=== PATIENT | male | born 1935 | race Caucasian/White ===

== ENCOUNTER 2019-11-01 12:27 | Outpatient (REF) | payer MEDICARE, OTHER, SELFPAY ==
[2019-11-01 21:44] LABS: Absolute Basophil Count 0.02 k/cumm (0.0-0.2); Absolute Eosinophil Count 0.16 k/cumm (0.0-0.7); Absolute Lymphocyte Count 1.24 k/cumm (1.2-3.4); Absolute Monocyte Count 0.49 k/cumm (0.11-0.7); Absolute Neutrophil Count 3.43 k/cumm (1.2-6.7); Basophils % 0.4; HCT 45.4 % (40.0-50.0); Lymphocytes % 23.2; Mean Corpuscular Hemoglobin 29.4 pg (27.0-33.0); Mean Platelet Volume 10.5 fL (8.0-11.0); Monocytes % 9.2; Neutrophils % 64.2; Platelet Count 319 x1000/uL (130-400); RBC Distribution Width 13.3 % (11.8-14.1); White Blood Cell Count 5.34 k/cumm (4.4-10.8)
[2019-11-01 22:20] LABS: Anion Gap 9.7 mmol/L (3-11); BUN 17 mg/dL (7-18); CO2 29.3 mmol/L (21.0-32.0); CREATININE 0.97 mg/dL (0.70-1.30); Calcium 9.2 mg/dL (8.5-10.1); Calculated LDL 124 mg/dL (<100); Chloride 104 mmol/L (98-107); Cholesterol 191 mg/dL (<200); Glucose 111 mg/dL (74-106); HDL Cholesterol 49 mg/dL (40-60); Potassium 4.6 mmol/L (3.5-5.1); Sodium 143 mmol/L (136-145); TSH 2.26 uIU/mL (0.36-3.74); Triglyceride 94 mg/dL (<150); Vitamin B12 372 pg/mL (193-986)
== END 2019-11-01 12:47 ==
LOC: NCHCN 12:27
PROVIDERS: PCP Family Medicine; Visit Provider Internal Medicine
DX: E78.5 Hyperlipidemia, unspecified (principal)
CPT/HCPCS: 80048; 80061; 82607; 84443; 85025

== ENCOUNTER 2021-01-01 13:10 | Outpatient (REF) | payer MEDICARE, OTHER, SELFPAY ==
[2021-01-01 21:13] LABS: Anion Gap 5.2 mmol/L (3-11); BUN 26 mg/dL (7-18); CO2 30.8 mmol/L (21.0-32.0); CREATININE 1.1 mg/dL (0.70-1.30); Calcium 8.9 mg/dL (8.5-10.1); Calculated LDL 94 mg/dL (<100); Chloride 105 mmol/L (98-107); Cholesterol 160 mg/dL (<200); Glucose 107 mg/dL (74-106); HDL Cholesterol 42 mg/dL (40-60); Potassium 4.3 mmol/L (3.5-5.1); Sodium 141 mmol/L (136-145); Triglyceride 122 mg/dL (<150)
== END 2021-01-01 13:11 | disposition home or self-care (01) ==
LOC: NCHCN 13:10
PROVIDERS: PCP Family Medicine; Visit Provider Internal Medicine
DX: E78.5 Hyperlipidemia, unspecified (principal); N20.0 Calculus of kidney
CPT/HCPCS: 80048; 80061

== ENCOUNTER 2022-07-04 17:09 | Outpatient (REF) | payer MEDICARE, SELFPAY ==
[2022-07-04 21:17] LABS: Hemoglobin A1C 6.5 % (<5.7)
[2022-07-04 21:38] LABS: ALT 21 U/L (16-63); AST 18 U/L (15-37); Albumin 3.7 g/dL (3.4-5.0); Alkaline Phosphatase 84 U/L (46-116); Anion Gap 7.4 mmol/L (3-11); BUN 26 mg/dL (7-18); Bilirubin, Total 0.2 mg/dL (0.2-1.0); CO2 27.6 mmol/L (21.0-32.0); Calcium 9.1 mg/dL (8.5-10.1); Chloride 106 mmol/L (98-107); Estimated GFR 73.76 (mL/min/1.73m2); Glucose 109 mg/dL (74-106); Potassium 3.9 mmol/L (3.5-5.1); Sodium 141 mmol/L (136-145); Total Protein 7.2 g/dL (6.4-8.2); Vitamin B12 295 pg/mL (193-986)
== END 2022-07-04 17:10 | disposition home or self-care (01) ==
LOC: NCHCN 17:09
PROVIDERS: PCP Family Medicine; Visit Provider Internal Medicine
DX: R73.9 Hyperglycemia, unspecified (principal); I10 Essential (primary) hypertension; R41.3 Other amnesia
CPT/HCPCS: 80053; 82607; 83036; 84443

== ENCOUNTER 2022-10-09 12:11 | Outpatient (REF) | payer MEDICARE, SELFPAY ==
[2022-10-09 22:23] LABS: COMMENT (LAB VIEW ONLY) 132.68 mg/dL
[2022-10-09 22:41] LABS: Microalb ug/mg Crea 152.1 ug/mg Cr
== END 2022-10-09 12:12 | disposition home or self-care (01) ==
LOC: NCHCN 12:11
PROVIDERS: PCP Family Medicine; Visit Provider Internal Medicine
DX: E11.9 Type 2 diabetes mellitus without complications (principal)
CPT/HCPCS: 82043; 82570

== ENCOUNTER 2023-08-08 18:11 | Outpatient (REF) | payer MEDICARE, SELFPAY ==
[2023-08-08 14:38] LABS: HCT 37.6 % (40.0-50.0); HGB 12.4 g/dL (13.5-17.5); MCV 91 fL (80-95); MPV 9.9 fL (8.0-11.0); Platelet Count 236 10^3/uL (130-400); RBC 4.14 10^6/uL (4.36-5.78); RDW 12.2 % (11.8-14.1); RDW-SD 40.8 fL; WBC 6.01 10^3/uL (4.4-10.8)
[2023-08-08 15:57] LABS: ALT 33 U/L (16-63); AST 22 U/L (15-37); Albumin 3.8 g/dL (3.4-5.0); Alkaline Phosphatase 80 U/L (46-116); Anion Gap 5.8 mmol/L (3-11); BUN 41 mg/dL (7-18); Bilirubin, Total 0.3 mg/dL (0.2-1.0); CO2 28.2 mmol/L (21.0-32.0); CREATININE 1.4 mg/dL (0.70-1.30); Calcium 9.3 mg/dL (8.5-10.1); Chloride 107 mmol/L (98-107); Estimated GFR 48.95 (mL/min/1.73m2); Glucose 125 mg/dL (74-106); Potassium 4.8 mmol/L (3.5-5.1); Sodium 141 mmol/L (136-145); Total Protein 7.3 g/dL (6.4-8.2)
== END 2023-08-08 18:12 | disposition home or self-care (01) ==
LOC: NCHCN 18:11
PROVIDERS: PCP Family Medicine; Visit Provider Internal Medicine
DX: I10 Essential (primary) hypertension (principal); E11.9 Type 2 diabetes mellitus without complications
CPT/HCPCS: 80053; 85027

== ENCOUNTER 2023-08-15 22:26 | Outpatient (REF) | payer MEDICARE, SELFPAY ==
[2023-08-15 21:35] LABS: COMMENT (LAB VIEW ONLY) 157.45 mg/dL
[2023-08-15 21:37] LABS: Microalb ug/mg Crea 97.6 ug/mg Cr
== END 2023-08-15 22:27 | disposition home or self-care (01) ==
LOC: NCHCN 22:26
PROVIDERS: PCP Family Medicine; Visit Provider Internal Medicine
DX: E11.9 Type 2 diabetes mellitus without complications (principal)
CPT/HCPCS: 82043; 82570

== ENCOUNTER 2023-11-12 14:12 | Outpatient (REF) | payer MEDICARE, SELFPAY ==
[2023-11-12 16:03] LABS: HCT 36.8 % (40.0-50.0); MCH 29.9 pg (27.0-33.0); MCHC 32.6 % (32.0-36.0); MCV 92 fL (80-95); Platelet Count 322 10^3/uL (130-400); RBC 4.01 10^6/uL (4.36-5.78); RDW 13.1 % (11.8-14.1); RDW-SD 43.3 fL; WBC 6.41 10^3/uL (4.4-10.8)
[2023-11-12 16:18] LABS: Anion Gap 7.9 mmol/L (3-11); BUN 31 mg/dL (7-18); CO2 28.1 mmol/L (21.0-32.0); CREATININE 1.2 mg/dL (0.70-1.30); Calcium 9.5 mg/dL (8.5-10.1); Chloride 107 mmol/L (98-107); Estimated GFR 58.53 (mL/min/1.73m2); Glucose 113 mg/dL (74-106); Potassium 4.8 mmol/L (3.5-5.1); Sodium 143 mmol/L (136-145)
[2023-11-12 16:37] LABS: Hemoglobin A1C 6.2 % (<5.7)
== END 2023-11-12 14:13 | disposition home or self-care (01) ==
LOC: NCHCN 14:12
PROVIDERS: PCP Family Medicine; Visit Provider Internal Medicine
DX: E11.9 Type 2 diabetes mellitus without complications (principal); N17.9 Acute kidney failure, unspecified
CPT/HCPCS: 80048; 85027; 83036

== ENCOUNTER 2023-11-19 10:16 | Outpatient (REF) | payer MEDICARE, SELFPAY ==
[2023-11-19 15:23] LABS: COMMENT (LAB VIEW ONLY) 59.19 mg/dL
[2023-11-19 15:24] LABS: Microalb ug/mg Crea 141.9 ug/mg Cr
== END 2023-11-19 10:17 | disposition home or self-care (01) ==
LOC: NCHCN 10:16
PROVIDERS: PCP Family Medicine; Visit Provider Internal Medicine
DX: E11.9 Type 2 diabetes mellitus without complications (principal)
CPT/HCPCS: 82043; 82570

== ENCOUNTER 2024-05-12 11:43 | Outpatient (REF) | payer MEDICARE, SELFPAY ==
[2024-05-12 14:58] LABS: HCT 37.2 % (40.0-50.0); HGB 12.3 g/dL (13.5-17.5); MCH 30.1 pg (27.0-33.0); MCHC 33.1 % (32.0-36.0); MCV 91 fL (80-95); MPV 10.2 fL (8.0-11.0); Platelet Count 261 10^3/uL (130-400); RBC 4.09 10^6/uL (4.36-5.78); RDW-SD 42.5 fL; WBC 6.26 10^3/uL (4.4-10.8)
[2024-05-12 15:57] LABS: Anion Gap 7.7 mmol/L (3-11); BUN 39 mg/dL (7-18); CO2 27.3 mmol/L (21.0-32.0); CREATININE 1.4 mg/dL (0.70-1.30); Calcium 8.9 mg/dL (8.5-10.1); Chloride 108 mmol/L (98-107); Estimated GFR 48.65 (mL/min/1.73m2); Glucose 106 mg/dL (74-106); Potassium 4.8 mmol/L (3.5-5.1); Sodium 143 mmol/L (136-145); Vitamin B12 333 pg/mL (193-986)
[2024-05-12 18:51] LABS: Hemoglobin A1C 6.3 % (<5.7)
== END 2024-05-12 11:44 | disposition home or self-care (01) ==
LOC: NCHCN 11:43
PROVIDERS: PCP Family Medicine; Visit Provider Internal Medicine
DX: E11.9 Type 2 diabetes mellitus without complications (principal); N17.9 Acute kidney failure, unspecified
CPT/HCPCS: 80048; 85027; 82607; 83036

== ENCOUNTER 2024-09-22 13:40 | Emergency (ER) | payer MEDICARE, SELFPAY ==
[2024-09-22] VITALS (24 sets, daily range): BP systolic 152–175; BP diastolic 57–111; PULSE 58–85; RESP 18–20; TEMP 36.7; O2SAT 98–100
--- NOTE | 2024-09-22 14:00 | RT.EKG_ITS ---
APPROVED REPORT Exam: Resting ECG Reason for Exam: baseline/screening Patient Location: E HR:61 bpm ECG Measurements Heart Rate 61 AXIS IN 208 P 92 QRSd 96 QRS -24 QT 387 T 42 QTc 390 Conclusion Sinus rhythm, rate 61 No interval abnormalities Q wave III, aVF No STEMI No priors available for comparison
[2024-09-22] MEDS: Normal Saline - Diluent 50 ML VIAL IJ (14:30)
[2024-09-22] MEDS: Omnipaque 350 MG/ML 100 ML BTL 70 ML IJ (14:31)
--- NOTE | 2024-09-22 14:36 | W.ED.GENAD ---
Discharge Plan Disposition Patient Disposition: Home Condition: Stable Discharge Details Clinical Impression: Enlarged prostate, Vision blurring Primary Care Provider: Hema Gómez ED Provider: Matt Augustin Home Meds and New Rx's Prescriptions: Continued simvastatin 40 MG tablet 40 mg PO HS doxazosin 4 MG tablet 4 mg PO HS Discharge Instructions Instructions: Benign prostatic hyperplasia (enlarged prostate), Age-related vision loss, Constipation, Adult ED Additional Instructions: You were seen in the emergency department for your brief episode of blurred vision in your left eye this morning at 8 AM with chronic right eye blindness, you state that you have had right lower quadrant abdominal pain for 1 year and right lower back pain as well chronically. You have an enlarged prostate which is known and you are having trouble urinating, the CTA of your head and neck shows no evidence of occlusion or stroke and your story is not consistent with stroke with your other chronic ophthalmologic conditions. Please follow-up with eye doctor visit. There is a large stool burden seen on your CT abdomen, please take stool softeners and MiraLAX as needed, you have chronic bladder outlet obstruction syndrome and chronic renal cysts but no obstructing renal stones. Please follow-up with referral to urology from your primary care provider. Your neuroexam was normal and I do not suspect that this was stroke related pathology but if you experience any further episodes of coordination difficulties or vision changes you need to return immediately to the ER, please return for any other emergent concerns like chest pain, respiratory distress, intractable nausea or vomiting, complete urinary retention. Referrals: Hema Gómez MD [Primary Care Provider] - Discharge Data Discharge Date/Time-TO BE ENTERED AT DEPARTURE: 09/22/24 17:51 HPI General Date/Time Provider Initiated Documentation: 09/22/24 14:07. 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 Quality described as blurry vision that fully resolved, walking difficulty that he cannot explain, uses a cane at baseline, ambulated in ok, no radiation to altered mentation, slurred speech, other coordination difficulty, cough, fever, loss of vision. Severity is described as mild to moderate. Palliating factors include nothing specific attempted. Provoking factors include nothing specific. Events leading up to the incident/Associated Symptoms: Patients daughter also wants his RLQ abdominal pain checked that has been present for a year +, and he has known BPH and has to push his urine out worsening slowly over time. Patient not anticoagulated. Related Data Home Medications ?Medication ?Instructions ?Recorded ?Confirmed doxazosin 4 mg tablet 4 mg PO HS 11/18/13 09/22/24 simvastatin 40 mg tablet 40 mg PO HS 11/18/13 09/22/24 Allergies Allergy/AdvReac Type Severity Reaction Status Date / Time No Known Allergies Allergy Unverified 09/22/24 13:55 General Stated Complaint: GenMedical JOSE JUAN: 4 Review of Systems All systems reviewed & are unremarkable except as noted in HPI and below Exam Narrative Exam Narrative: GENERAL APPEARANCE: Well-nourished, non-toxic, awake and alert, atraumatic, no acute distress. SKIN: Warm, pink, dry, intact, without rashes/lesions/ulcerations. HEAD: Normocephalic, atraumatic, normal hair distribution for gender/age. EYES: Normal conjunctiva, no exudates on lids/lashes, EOM intact L eye, vision grossly intact L eye, visual daniels intact L eye, chronically blind R eye, no haziness to cornea L eye ENT: Nares patent, no circumoral cyanosis, no facial swelling NECK: Supple, trachea midline, painless cervical ROM. LUNGS/CHEST: Lungs CTA bilaterally- no rhonchi/rales/wheezes diffusely, non-labored respirations, normal A/P diameter, symmetrical expansion, no chest wall deformity HEART (CV/PV): Regular rate and rhythm without murmur, no peripheral edema, no JVD. ABDOMEN: Soft, non-distended, no guarding, no anterior abdominal tenderness, R CVA tenderness to percussion, non-peritoneal. MSK: Normal ROM, no swelling/deformity to bilateral UEs or LEs, moving all extremities without weakness, no cyanosis, spine midline without tenderness, normal curvature. NEURO: Mental Status AAOx4 - alert to person, place, time, events No facial droop, no forehead involvement, no dysmetria Motor: No focal weakness - strength 5/5 in bilateral UEs and LEs, proximal and distal, symmetric. Sensory: sensation intact to light touch globally. Gait normal: patient ambulated without ataxia into ED room. PSYCH: euthymic, cooperative, pleasant, appropriate speech Course Vital Signs Vital signs: Vital Signs Temperature 36.7 C 09/22/24 13:48 Pulse 70 09/22/24 13:48 Respiratory Rate 18 09/22/24 13:48 Blood Pressure 165/64 H 09/22/24 13:48 Pulse Oximetry 100 09/22/24 13:48 Temperature 36.7 C 09/22/24 13:48 Pulse 70 09/22/24 13:48 Respiratory Rate 18 09/22/24 14:24 Respiratory Effort Normal, Non-Labored 09/22/24 14:24 Respiratory Depth Normal 09/22/24 14:24 Respiratory Pattern Normal 09/22/24 14:24 Blood Pressure 165/64 H 09/22/24 13:48 Pulse Oximetry 100 09/22/24 13:48 Pain Level 3 09/22/24 13:48 Medical Decision Making This dictation utilizes [id number] dictation software and may contain unedited grammatical errors. 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 Quality described as blurry vision that fully resolved, walking difficulty that he cannot explain, uses a cane at baseline, ambulated in ok, no radiation to altered mentation, slurred speech, other coordination difficulty, cough, fever, loss of vision. Severity is described as mild to moderate. Palliating factors include nothing specific attempted. Provoking factors include nothing specific. Events leading up to the incident/Associated Symptoms: Patients daughter also wants his RLQ abdominal pain checked that has been present for a year +, and he has known BPH and has to push his urine out worsening slowly over time. Patients' medical history: T2DM, hypertension, anemia, acute kidney failure, hypertension, amnesia, history of smoking, history of kidney stone. Family and social history: Lives independently, no exercise regimen, denies current tobacco use. Pertinent exam findings / vital signs include vision grossly intact in left eye, chronically blind in the right eye, neuro intact without any focal deficit, benign cardiopulmonary exam, R CVA tenderness to percussion, benign anterior abdomen without tenderness to McBurney's point, has some mild tenderness at the right SI joint. Differential / pathologies of concern include diabetic retinopathy, debility, unlikely TIA, renal stones, chronic pain. Diagnostic studies of: -CBC, CMP, lipase, UA, CTA of the head and neck, CT renal colic study. -CBC shows no signs of infection, is mild anemia at baseline -CMP shows baseline creatinine no other actionable abnormality -Lipase at the upper limit of normal -UA has proteinuria and trace blood, reflex to CT renal colic study -CT renal colic study shows stable known renal cysts, large stool burden -CTA of the brain and neck showed no acute abnormality, chronic carotid stenosis 50 to 69% Interventions of: -None, recommend MiraLAX for large stool burden as this was possibly linked to his vague abdominal pains, recommend he follow-up with urology for his urinary issues and strict return criteria for any neurologic abnormality or further vision changes but I suspect he may have diabetic retinopathy and should follow-up with warehouse receiver or financial services rep which the patient and daughter understood. Findings not consistent with CVA or TIA, sepsis or infection, obstructive uropathy, acute abdominal pathology. Disposition of vision blurring, enlarged prostate. Patient verbalized understanding of the plan and return to ED criteria and engaged in shared decision making. Medical Records Medical records reviewed: Yes I reviewed the patient's medical records. Imaging Data Radiologic Study: Attestation: I personally reviewed and interpreted this imaging study as follows: Imaging: CT Scan Radiologist's impression: Exam: CTA Head Without And With Contrast, Arteriography Exam date and time: 09/22/2024 2:34 PM Age: 89 years old Clinical indication: Stroke-like symptoms; Other: Brief blurry vision \T\ ataxia >6 hours ago TECHNIQUE: Imaging protocol: Computed tomographic angiography of the head without and with contrast. Exam focused on the arteries. 3D rendering (Not supervised by radiologist): MIP and/or 3D reconstructed images were created by the technologist. Contrast material: OMNIPAQUE 350; Contrast volume: 70 ml; Contrast route: INTRAVENOUS (IV); Other technique: STROKE PROTOCOL was implemented. COMPARISON: No relevant prior studies available. FINDINGS: ANTERIOR CIRCULATION: Right internal carotid artery: Intracranial segment is patent with no significant stenosis or occlusion. No aneurysm. Right middle cerebral artery: No occlusion or significant stenosis. No aneurysm. Right anterior cerebral artery: No occlusion or significant stenosis. No aneurysm. Left internal carotid artery: Intracranial segment is patent with no significant stenosis. No aneurysm. Left middle cerebral artery: No occlusion or significant stenosis. No aneurysm. Left anterior cerebral artery: No occlusion or significant stenosis. No aneurysm. POSTERIOR CIRCULATION: Right vertebral artery: No occlusion or significant stenosis. No aneurysm. Left vertebral artery: No occlusion or significant stenosis. No aneurysm. Basilar artery: No occlusion or significant stenosis. No aneurysm. Right posterior cerebral artery: No occlusion or significant stenosis. No aneurysm. Left posterior cerebral artery: No occlusion or significant stenosis. No aneurysm. HEAD: Brain: Normal. No hemorrhage. Unremarkable white matter. No mass effect. Cerebral ventricles: Moderate ventricular dilation on the basis of atrophy. No hydrocephalus. Bones: Unremarkable. No acute fracture. Paranasal sinuses: Visualized sinuses are normal. No fluid levels. Mastoid air cells: Visualized mastoids are normal. No mastoid effusion. Soft tissues: Unremarkable. IMPRESSION: 1. No large vessel occlusion. 2. Unremarkable CT head. ASSESSMENT: ASPECTS ([place] Stroke Program Early CT Score) is 10. PROCEDURE INFORMATION: Exam: CTA Neck Without And With Contrast Exam date and time: 09/22/2024 2:34 PM Age: 89 years old Clinical indication: Stroke-like symptoms; Other: Brief blurry vision \T\ ataxia >6 hours ago TECHNIQUE: Imaging protocol: Computed tomographic angiography of the neck without and with contrast. Exam focused on the cervical segments of the vasculature. 3D rendering (Not supervised by radiologist): MIP and/or 3D reconstructed images were created by the technologist. Contrast material: OMNIPAQUE 350; Contrast volume: 70 ml; Contrast route: INTRAVENOUS (IV); COMPARISON: No relevant prior studies available. FINDINGS: Right common carotid artery: No stenosis. No dissection or occlusion. Right internal carotid artery: There is a moderate 50-69% stenosis in the proximal right internal carotid artery. Right external carotid artery: No occlusion or stenosis of the origin. Left common carotid artery: No stenosis. No dissection or occlusion. Left internal carotid artery: There is a moderate 50-69% stenosis in the proximal left internal carotid artery. Left external carotid artery: No occlusion or stenosis of the origin. Right vertebral artery: No stenosis. No dissection or occlusion. Left vertebral artery: No stenosis. No dissection or occlusion. Soft tissues: Normal. No significant soft tissue swelling. Bones/joints: No acute fracture. Multilevel advanced facet arthropathy and neural foraminal narrowing. 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 Radiologic Study #2: Attestation: I personally reviewed and interpreted this imaging study as follows: Imaging: CT Scan Radiologist's impression: Exam: CT Abdomen And Pelvis Without Contrast Exam date and time: 09/22/2024 4:07 PM Age: 89 years old Clinical indication: Other: Proteinuria, R flank pain TECHNIQUE: Imaging protocol: Computed tomography of the abdomen and pelvis without contrast. COMPARISON: No relevant prior studies available. FINDINGS: Lungs: There is minimal bibasilar atelectasis or scarring. Moderate bilateral centrilobular emphysematous changes are present. Coronary arteries: There is coronary artery calcification. Liver: Normal. No mass. Gallbladder and biliary ducts: There has been a cholecystectomy. There has been a cholecystectomy. Pancreas: Normal. No ductal dilation. Spleen: Normal. No splenomegaly. Adrenal glands: Normal. No mass. Kidneys and ureters: There are multiple simple renal cysts.These are likely benign, with no additional imaging follow-up recommended. There is no hydronephrosis. 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 The stomach and small bowel are normal.There is no evidence of intestinal perforation or obstruction. Appendix: A normal appendix is identified. Intraperitoneal space: Unremarkable. No free air. No significant fluid collection. Vasculature: Unremarkable. No abdominal aortic aneurysm. Lymph nodes: Unremarkable. No enlarged lymph nodes. Urinary bladder: Small right Hutch diverticulum and several other bladder trabeculations likely related to chronic outlet obstruction.The prostate gland is markedly enlarged and indents the base of the bladder. Reproductive: The prostate gland is enlarged. Bones/joints: Degenerative changes of the spine without acute osseous abnormality. No acute fracture. Soft tissues: Unremarkable. IMPRESSION: No acute abnormality. Additional findings as described. Dictated and Authenticated by: Mehreen Carlton MD. Lab Data Lab results reviewed: Yes I reviewed the patient's lab results. Labs: Laboratory Tests Range/Units 09/22/24 09/22/24 14:20 15:05 WBC (4.4-10.8) 10^3/uL 6.69 RBC (4.36-5.78) 10^6/uL 4.18 L Hgb (13.5-17.5) g/dL 12.6 L Hct (40.0-50.0) % 37.9 L MCV (80-95) fL 91 MCH (27.0-33.0) pg 30.1 MCHC (32.0-36.0) % 33.2 RDW (11.8-14.1) % 12.7 Plt Count (130-400) 10^3/uL 221 MPV (8.0-11.0) fL 9.3 Immature Gran % % 0.1 Neutrophils % % 71.5 Lymphocytes % % 17.9 Monocytes % % 7.2 Eosinophils % % 3.0 Basophils % % 0.3 Nucleated RBC % (0.0-0.3) % 0.0 Absolute Neutrophils (1.2-6.7) 10^3/uL 4.78 Absolute Lymphocytes (1.2-3.4) 10^3/uL 1.20 Absolute Monocytes (0.1-0.8) 10^3/uL 0.48 Absolute Eosinophils (0.0-0.7) 10^3/uL 0.20 Absolute Basophils (0.0-0.2) 10^3/uL 0.02 Sodium (136-145) mmol/L 143 Potassium (3.5-5.1) mmol/L 4.4 Chloride (98-107) mmol/L 108 H Carbon Dioxide (21.0-32.0) mmol/L 24.4 Anion Gap (3-11) mmol/L 10.6 BUN (7-18) mg/dL 35 H Creatinine (0.70-1.30) mg/dL 1.4 H Est GFR (CKD-EPI 2020) (mL/min/1.73m2) 48.34 Glucose (74-106) mg/dL 107 H Calcium (8.5-10.1) mg/dL 8.9 Magnesium (1.8-2.4) mg/dL 2.1 Total Bilirubin (0.2-1.0) mg/dL 0.27 AST (15-37) U/L 22 ALT (16-63) U/L 35 Alkaline Phosphatase (46-116) U/L 103 Total Protein (6.4-8.2) g/dL 7.6 Albumin (3.4-5.0) g/dL 3.7 Lipase (<78) U/L 78 H Urine Color (Yellow) Yellow Urine Clarity (Clear) Clear Urine pH (5-8) 5.5 Ur Specific [place] (1.005-1.025) 1.020 Urine Protein (Neg-Trace) mg/dL 100 H Urine Ketones (Negative) mg/dL Negative Urine Blood (Negative) Trace-lysed H Urine Nitrite (Negative) Negative Urine Bilirubin (Negative) Negative Urine Urobilinogen (Up to 0.2) mg/dL 0.2 Ur Leukocyte Esterase (Negative) Trace Urine RBC (0-2) HPF 0-2 Urine WBC (0-5) HPF 3-5 Ur Epithelial Cells (Negative) HPF Rare Urine Crystals (Negative) HPF Negative Urine Bacteria (Negative) HPF Rare Urine Casts (Negative) LPF 0-2 Hyaline Urine Mucus (Negative) Trace Ur Culture Indicated? No Urine Glucose (Negative) mg/dL Negative Quality:SDOH Health Related Social Needs: No Data to Display PFSH All Active Problems (Updated 09/22/24 @ 17:23 by ALEENA Posada) Vision blurring (Acute) Enlarged prostate (Acute) Social History Smoking/Tobacco Use Status: Former Tobacco Use Smoking risk assessment performed?: Yes Alcohol Intake: former Drug use: Never Housing: house Do you feel safe at home: Yes Do you feel safe in your relationship?: Yes
[2024-09-22 14:39] LABS: Absolute Neutrophil Count 4.78 10^3/uL (1.2-6.7); HCT 37.9 % (40.0-50.0); HGB 12.6 g/dL (13.5-17.5); MCH 30.1 pg (27.0-33.0); MCHC 33.2 % (32.0-36.0); MCV 91 fL (80-95); MPV 9.3 fL (8.0-11.0); Neutrophils % 71.5 %; Platelet Count 221 10^3/uL (130-400); RBC 4.18 10^6/uL (4.36-5.78); RDW 12.7 % (11.8-14.1); RDW-SD 41.9 fL; WBC 6.69 10^3/uL (4.4-10.8)
[2024-09-22 14:40] LABS: Abs Immature Grans 0.01 10^3/uL (0.0-0.06); Absolute Basophil Count 0.02 10^3/uL (0.0-0.2); Absolute Monocyte Count 0.48 10^3/uL (0.1-0.8); Basophils % 0.3 %; Immature Grans % 0.1 %; Lymphocytes % 17.9 %; Monocytes % 7.2 %
[2024-09-22 14:44] LABS: Albumin 3.7 g/dL (3.4-5.0); Alkaline Phosphatase 103 U/L (46-116); BUN 35 mg/dL (7-18); Bilirubin, Total 0.27 mg/dL (0.2-1.0); CREATININE 1.4 mg/dL (0.70-1.30); Calcium 8.9 mg/dL (8.5-10.1); Estimated GFR 48.34 (mL/min/1.73m2); Glucose 107 mg/dL (74-106); Potassium 4.4 mmol/L (3.5-5.1); Sodium 143 mmol/L (136-145); Total Protein 7.6 g/dL (6.4-8.2)
[2024-09-22 14:45] LABS: ALT 35 U/L (16-63); AST 22 U/L (15-37); Anion Gap 10.6 mmol/L (3-11); CO2 24.4 mmol/L (21.0-32.0); Chloride 108 mmol/L (98-107); Lipase 78 U/L (<78); Magnesium 2.1 mg/dL (1.8-2.4)
--- NOTE | 2024-09-22 14:54 | DI.CT_ITS ---
Exam(s) CT BRAIN NECK CTA EXAM: CT BRAIN NECK CTA CLINICAL HISTORY: brief blurry vision ataxia >6 hours ago. TECHNIQUE: Imaging Protocol: Axial CT angiography was performed with multi-slice acquisition and mu lti-planar and MIP reconstructions. CONTRAST MATERIAL: Intravenous: Omnipaque 350 Contrast volume:70 ml COMPARISON: No exams were available for comparison FINDINGS: CT Head W/O and W contrast: Ventricles and Extra axial spaces: Dilated bowel within normal limits for degree of atrophy. Hemorrhage: None. Cerebral parenchyma: No evidence of acute infarct or mass. Moderate atrophy. Mild microvascular c hanges. Midline shift: None. Brainstem/Cerebellum: No acute findings.. Calvarium: Venous lakes/paccionian granulations in the bilateral occipital bones. Visualized Paranasal sinuses/Mastoids: Clear. Soft Tissues: Unremarkable. Enhancement: Normal. CTA Brain W: Internal Carotid Arteries: Petrous: Normal. Cavernous: Normal. Cerebral: Normal. Middle Cerebral Arteries: Right: No aneurysm, occlusion or significant stenosis. Left: No aneurysm, occlusion or significant stenosis. Anterior Cerebral Arteries: Right: No aneurysm, occlusion or significant stenosis. Left: No aneurysm, occlusion or significant stenosis. Posterior cerebral Arteries: Right: No aneurysm, occlusion or significant stenosis. Left: No aneurysm, occlusion or significant stenosis. Vertebral Arteries: Right: No aneurysm, occlusion or significant stenosis. Left: No aneurysm, occlusion or significant stenosis. Basilar Artery: No aneurysm, occlusion or significant stenosis. CTA Neck W: Common Carotid: Right: Plaque at the common carotid bulb. No dissection or occlusion. Left: Plaque at the common carotid bulb. No dissection or occlusion. External Carotid: Right: No dissection, occlusion or significant stenosis. Left: No dissection, occlusion or significant stenosis. Internal Carotid: Right: Proximal plaque causing moderate stenosis, 50-69 percent. No dissection or occlusion. Left: Proximal plaque causing moderate stenosis, 50-69 percent. No dissection or occlusion. Vertebral Artery: Right: No dissection, occlusion or significant stenosis. Left: No dissection, occlusion or significant stenosis. Aorta: Atherosclerotic changes with irregular calcified plaque. Lung Apices: Emphysematous changes. No acute findings. Bones: No acute abnormality. Degenerative changes in the cervical spine Soft Tissues: Normal. IMPRESSION: 1. CTA brain: Normal CTA examination of the [place]. 2. Head CT: Unremarkable CT Head. 3. CTA neck: Calcified atherosclerotic plaque at the common carotid bulbs and proximal internal carot id arteries, causing moderate stenosis of 50-69 percent bilaterally. RADIATION DOSE DELIVERED: 2,227.56mGy.cm Total DLP DATA REPOSITORY: All CT scans at this facility are submitted to the National Radiology Data Registry (NRDR) Dose Index Registry (DIR) with the [employer] (A[employer]). RADIATION OPTIMIZATION: All CT scans at this facility use at least one of these dose optimization te chniques: automated exposure control; mA and/or kV adjustment per patient size (includes targeted exa ms where dose is matched to clinical indication); or iterative reconstruction.
--- NOTE | 2024-09-22 15:23 | DI.VRAD_ITS ---
PROCEDURE INFORMATION: Exam: CTA Head Without And With Contrast, Arteriography Exam date and time: 09/22/2024 2:34 PM Age: 89 years old Clinical indication: Stroke-like symptoms; Other: Brief blurry vision \T\ ataxia >6 hours ago TECHNIQUE: Imaging protocol: Computed tomographic angiography of the head without and with contrast. Exam focused on the arteries. 3D rendering (Not supervised by radiologist): MIP and/or 3D reconstructed images were created by the technologist. Contrast material: OMNIPAQUE 350; Contrast volume: 70 ml; Contrast route: INTRAVENOUS (IV); Other technique: STROKE PROTOCOL was implemented. COMPARISON: No relevant prior studies available. FINDINGS: ANTERIOR CIRCULATION: Right internal carotid artery: Intracranial segment is patent with no significant stenosis or occlusion. No aneurysm. Right middle cerebral artery: No occlusion or significant stenosis. No aneurysm. Right anterior cerebral artery: No occlusion or significant stenosis. No aneurysm. Left internal carotid artery: Intracranial segment is patent with no significant stenosis. No aneurysm. Left middle cerebral artery: No occlusion or significant stenosis. No aneurysm. Left anterior cerebral artery: No occlusion or significant stenosis. No aneurysm. POSTERIOR CIRCULATION: Right vertebral artery: No occlusion or significant stenosis. No aneurysm. Left vertebral artery: No occlusion or significant stenosis. No aneurysm. Basilar artery: No occlusion or significant stenosis. No aneurysm. Right posterior cerebral artery: No occlusion or significant stenosis. No aneurysm. Left posterior cerebral artery: No occlusion or significant stenosis. No aneurysm. HEAD: Brain: Normal. No hemorrhage. Unremarkable white matter. No mass effect. Cerebral ventricles: Moderate ventricular dilation on the basis of atrophy. No hydrocephalus. Bones: Unremarkable. No acute fracture. Paranasal sinuses: Visualized sinuses are normal. No fluid levels. Mastoid air cells: Visualized mastoids are normal. No mastoid effusion. Soft tissues: Unremarkable. IMPRESSION: 1. No large vessel occlusion. 2. Unremarkable CT head. ASSESSMENT: ASPECTS ([place] Stroke Program Early CT Score) is 10. PROCEDURE INFORMATION: Exam: CTA Neck Without And With Contrast Exam date and time: 09/22/2024 2:34 PM Age: 89 years old Clinical indication: Stroke-like symptoms; Other: Brief blurry vision \T\ ataxia >6 hours ago TECHNIQUE: Imaging protocol: Computed tomographic angiography of the neck without and with contrast. Exam focused on the cervical segments of the vasculature. 3D rendering (Not supervised by radiologist): MIP and/or 3D reconstructed images were created by the technologist. Contrast material: OMNIPAQUE 350; Contrast volume: 70 ml; Contrast route: INTRAVENOUS (IV); COMPARISON: No relevant prior studies available. FINDINGS: Right common carotid artery: No stenosis. No dissection or occlusion. Right internal carotid artery: There is a moderate 50-69% stenosis in the proximal right internal carotid artery. Right external carotid artery: No occlusion or stenosis of the origin. Left common carotid artery: No stenosis. No dissection or occlusion. Left internal carotid artery: There is a moderate 50-69% stenosis in the proximal left internal carotid artery. Left external carotid artery: No occlusion or stenosis of the origin. Right vertebral artery: No stenosis. No dissection or occlusion. Left vertebral artery: No stenosis. No dissection or occlusion. Soft tissues: Normal. No significant soft tissue swelling. Bones/joints: No acute fracture. Multilevel advanced facet arthropathy and neural foraminal narrowing. 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 REFERENCES: NASCET CRITERIA. The degree of stenosis in the cervical segment of the internal carotid artery is based on NASCET criteria. Normal is no stenosis. Mild is less than 50% stenosis. Moderate is 50-69% stenosis. Severe is 70% to 99% stenosis. Total occlusion is no detectable patent lumen. Dictated and Authenticated by: Mehreen Carlton MD. Ordering:ED Gutierrez MD
[2024-09-22 15:40] LABS: Bilirubin Negative (Negative); Blood Trace-lysed (Negative); Clarity Clear (Clear); Glucose Negative (Negative); Ketones Negative (Negative); Leukocyte Esterase Trace (Negative); Nitrite Negative (Negative); Urobilinogen 0.2 mg/dL (Up to 0.2); pH 5.5 (5-8)
[2024-09-22 15:41] LABS: Bacteria Rare HPF (Negative); C & S Indicated? No; Casts 0-2 Hyaline LPF (Negative); Crystals Negative HPF (Negative); Epithelial Cells Rare HPF (Negative); Mucus Trace (Negative); RBC 0-2 HPF (0-2)
--- NOTE | 2024-09-22 15:45 | DI.CT_ITS ---
Exam(s) CT RENAL COLIC WO EXAM: CT RENAL COLIC WO CLINICAL HISTORY: proteinuria, R flank pain. TECHNIQUE: Imaging Protocol: Axial computed tomography images with coronal and sagittal reformatted images were created and reviewed. COMPARISON: US ABDOMEN ULTRASOUND (P) from 02/18/2012 FINDINGS: Lung Bases: No acute findings. Liver: Normal density. No measurable mass. Gallbladder and biliary tract: Prior cholecystectomy. No biliary ductal dilation. Pancreas: No abnormal calcifications or inflammatory process. Spleen: Normal size. Kidneys: Normal size, contour and axis.No radiodense stones or obstructive uropathy. No suspicious ma sses seen. Contrast material in collecting system related to prior CTA head and neck. Bilateral julianna l cysts. Adrenal glands: No mass is seen. Lymph nodes: Within normal limits. Vasculature: Abdominal aorta non-dilated. Advanced atherosclerotic changes. Bladder:Contrast material related to prior CTA head and neck. Trabeculated wall. Several small blad da diverticula. No evidence of mass. Bowel: No obstruction. No bowel wall thickening. At sigmoid diverticulosis. No evidence of divert iculitis. No evidence of appendicitis. Peritoneal cavity: No ascites.No free air. No focal collection. No mesenteric inflammatory response. Reproductive organs: Markedly enlarged prostate. Bones: Unremarkable for age. Soft Tissues: Within normal limits. IMPRESSION: Enlarged prostate. Trabeculated bladder wall. Bladder diverticula. No acute abnormality. CONTRAST MATERIAL: Contrast material administered for CT brain and neck. No additional contrast mat erial administered RADIATION DOSE DELIVERED: 469.47mGy.cm Total DLP 469.47mGy.cm Total DLP DATA REPOSITORY: All CT scans at this facility are submitted to the National Radiology Data Registry (NRDR) Dose Index Registry (DIR) with the [employer] (ACR). RADIATION OPTIMIZATION: All CT scans at this facility use at least one of these dose optimization te chniques: automated exposure control; mA and/or kV adjustment per patient size (includes targeted exa ms where dose is matched to clinical indication); or iterative reconstruction.
--- NOTE | 2024-09-22 16:28 | DI.VRAD_ITS ---
PROCEDURE INFORMATION: Exam: CT Abdomen And Pelvis Without Contrast Exam date and time: 09/22/2024 4:07 PM Age: 89 years old Clinical indication: Other: Proteinuria, R flank pain TECHNIQUE: Imaging protocol: Computed tomography of the abdomen and pelvis without contrast. COMPARISON: No relevant prior studies available. FINDINGS: Lungs: There is minimal bibasilar atelectasis or scarring. Moderate bilateral centrilobular emphysematous changes are present. Coronary arteries: There is coronary artery calcification. Liver: Normal. No mass. Gallbladder and biliary ducts: There has been a cholecystectomy. There has been a cholecystectomy. Pancreas: Normal. No ductal dilation. Spleen: Normal. No splenomegaly. Adrenal glands: Normal. No mass. Kidneys and ureters: There are multiple simple renal cysts.These are likely benign, with no additional imaging follow-up recommended. There is no hydronephrosis. 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 The stomach and small bowel are normal.There is no evidence of intestinal perforation or obstruction. Appendix: A normal appendix is identified. Intraperitoneal space: Unremarkable. No free air. No significant fluid collection. Vasculature: Unremarkable. No abdominal aortic aneurysm. Lymph nodes: Unremarkable. No enlarged lymph nodes. Urinary bladder: Small right Hutch diverticulum and several other bladder trabeculations likely related to chronic outlet obstruction.The prostate gland is markedly enlarged and indents the base of the bladder. Reproductive: The prostate gland is enlarged. Bones/joints: Degenerative changes of the spine without acute osseous abnormality. No acute fracture. Soft tissues: Unremarkable. IMPRESSION: No acute abnormality. Additional findings as described. Dictated and Authenticated by: Mehreen Carlton MD. Ordering:ED Gutierrez MD
== END 2024-09-22 17:51 | disposition home or self-care (01) ==
PROVIDERS: Emergency Provider Physician Assistant; PCP Family Medicine
DX: H53.8 Other visual disturbances (principal); N40.0 Benign prostatic hyperplasia without lower urinary tract symptoms; R10.31 Right lower quadrant pain; I10 Essential (primary) hypertension; Z87.442 Personal history of urinary calculi; E11.9 Type 2 diabetes mellitus without complications
CPT/HCPCS: 70496; 70498; 80053; 83690; 93005; 99285; 74176; 81003; 81015; 83735; 85025; 93010; 99284; J3490

== ENCOUNTER 2024-11-22 13:28 | Outpatient (REF) | payer MEDICARE, SELFPAY ==
[2024-11-22 15:09] LABS: HCT 38.6 % (40.0-50.0); HGB 12.2 g/dL (13.5-17.5); MCH 29.6 pg (27.0-33.0); MCHC 31.6 % (32.0-36.0); MCV 94 fL (80-95); MPV 10.4 fL (8.0-11.0); Platelet Count 219 10^3/uL (130-400); RBC 4.12 10^6/uL (4.36-5.78); RDW-SD 44.7 fL; WBC 6.11 10^3/uL (4.4-10.8)
[2024-11-22 15:18] LABS: ALT 21 U/L (16-63); AST 17 U/L (15-37); Albumin 3.7 g/dL (3.4-5.0); Alkaline Phosphatase 104 U/L (46-116); BUN 34 mg/dL (7-18); Bilirubin, Total 0.24 mg/dL (0.2-1.0); CREATININE 1.4 mg/dL (0.70-1.30); Calcium 8.9 mg/dL (8.5-10.1); Chloride 111 mmol/L (98-107); Estimated GFR 48.34 (mL/min/1.73m2); Glucose 118 mg/dL (74-106); Potassium 4.6 mmol/L (3.5-5.1); Sodium 143 mmol/L (136-145); Total Protein 7.1 g/dL (6.4-8.2)
[2024-11-22 16:28] LABS: Hemoglobin A1C 6.2 % (<5.7)
== END 2024-11-22 13:29 | disposition home or self-care (01) ==
LOC: NCHCN 13:28
PROVIDERS: PCP Family Medicine; Visit Provider Internal Medicine
DX: E11.9 Type 2 diabetes mellitus without complications (principal); I10 Essential (primary) hypertension
CPT/HCPCS: 80053; 85027; 83036

== ENCOUNTER 2024-12-14 00:30 | Outpatient (CLI) | payer MEDICARE, SELFPAY ==
--- NOTE | 2024-12-14 14:00 | DI.US_ITS ---
APPROVED REPORT EXAM: Comprehensive 2D, Doppler, and color-flow Echocardiogram Patient Location: Out-Patient Document Processing Specialist: Roberto Zimmerman RDCS (AE) Indications: Systolic murmur, episode amaurosis fugax Conclusion Mild concentric left ventricular hypertrophy. Ejection fraction is 60%. Wall motion is normal Normal right ventricular size and function Moderately dilated left atrium. Normal right atrial size Aortic valve is calcified and trileaflet. There is mild aortic stenosis. Peak gradient is 28, mean 15 mmHg. Calculated aortic valve area was 1.4 cm??. There is trace aortic regurgitation Normal mitral valve with trace to mild regurgitation Mild tricuspid regurgitation. Estimated right ventricular systolic pressure is 45 mmHg Wall motion Left Ventricle The left ventricle is normal size. The left ventricular systolic function is normal. The left ventric ular ejection fraction is within the normal range. Mild concentric left ventricular hypertrophy. Ther e is normal LV segmental wall motion. The left ventricular diastolic function is normal. There is no ventricular septal defect visualized. LVEF is 60%. Right Ventricle The right ventricle is normal size. The right ventricular systolic function is normal. Atria Left atrium is moderately dilated. The right atrium size is normal. The interatrial septum is intact with no evidence for an atrial septal defect. Aortic Valve Aortic valve is calcified. Aortic valve is trileaflet. Mild aortic stenosis. Peak aortic valve gradie nt is 28.46 mmHg. Highest mean aortic valve gradient is 15.36 mmHg. Calculated MAGDI by the continuity equation is 1.4 cm2. Trace aortic regurgitation. Mitral Valve The mitral valve is normal in structure. No evidence of mitral valve stenosis. Trace to mild mitral r egurgitation. Tricuspid Valve The tricuspid valve is normal in structure. There is no tricuspid valve stenosis. Mild tricuspid regu rgitation. The RVSP is 45.5 mmHg. Pulmonic Valve The pulmonary valve is normal in structure. There is no pulmonic valvular stenosis. There is no pulmo james valvular regurgitation. Great Vessels The aortic root is normal in size. The ascending aorta is normal in size. Aortic arch is normal in ca liber. IVC is normal in size and collapses >50% with inspiration. Pericardium There is no pericardial effusion. 2D Dimensions IVSD d PLAX 1.30 cm M: 0.6-1.2 Ao Root d 3.41 cm M: 3.1 - 3.7 LVPW d PLAX 1.32 cm M: 0.6 - 1.2 Ao Asc Diam d 2.78 cm M: 2.6 - 3.4 LVID d PLAX 4.72 cm M: 4.2 - 5.8 LVDs 3.21 cm M: 2.5 - 4.0 LV EF Teichholz 60.1 % FS 32.00 % LV EDV (Teich) 103.6 mL LV ESV (Teich) 41.3 mL Stroke Vol Index (Teich) 33.11 M-Mode TAPSE 2.92 cm (M/F) >1.7 Auto EF LV EDV A4C 131.4 mL LV EDV A2C 168.8 mL LV EDV BP 151.4 mL LV ESV A4C 59.2 mL LV ESV A2C 71.3 mL LV ESV BP 63.6 mL LVEF(%) A4C 55.0 % LVEF(%) A2C 57.7 % LVEF(%) BP 58.0 % LV SV A4C 72.2 ml LV SV A2C 97.4 ml LV SV BP 87.7 ml LV CO A4C 5.0 L/min LV CO A2C 7.1 L/min LV CO BP 6.1 L/min HR A4C 69.23 BPM HR A2C 73.17 BPM LV EDV Index (BP) LA Volume LA Length A4C 5.9 cm LA Length A2C 5.3 cm LA Area A4C s 18.56 cm2 LA Area A2C s 15.36 cm2 LA Vol A4C A-L 49.51 mL LA Vol A2C A-L 37.44 mL LA Vol Biplane A-L 45.2 mL LA Vol/BSA A4C A-L LA Vol/BSA A2C A-L LA Vol/BSA BP A-L 24.1 mL/m2 LA Vol A4C MOD 49.8 mL LA Vol A2C MOD 35.4 mL LA Vol BP MOD 43.0 mL RA Volume RA Area A4C 11.7 cm2 RA ESV A4C (A-L) 26.7mL RA Vol/BSA A4C A-L RA Length A4C 4.3 cm RA ESV A4C (MOD) 25.3mL LV Diastology MV E' medial 0.064 (>0.07 m/s) MV E Vmax 1.00 (0.4-1.3 m/s) MV E/E' MED 15.57 (<14) MV A Vmax 1.10 (0.4-1.3 m/s) MV E' lateral 0.080 (>0.1 m/s) E/A Ratio 0.9 MV E/E' LAT 12.60 (<14) MV E' Average 0.072 m/s MV E/E'(average) 13.93 Aortic Valve AoV Vmax 2.67 m/s LVOT Vmax 0.89 m/s AoV Peak Grad 41.1 mmHg LVOT Peak Grad 3.1 mmHg AoV Area (Vmax) 1.19 cm2 LVOT VTI 0.249 m AoV VTI 0.636 m LVOT Mean Grad 1.8 mmHg AoV Mean Gianni. 1.86 m/s LVOT SV 89.39 mL AoV Mean Grad 15.4 mmHg LVOT Diam s 2.10 cm AoV Area (VTI) 1.41 cm2 AV Regurg Peak Gr. 28.46 mmHg Velocity Ratio 0.33 AR Decel Morrill 2.5m/sec2 AR DT 1480 msec AR PHT 429 msec AR Vmax 3.66 m/s Mitral Valve MV DT 219 (160-240 msec) MV Vmax TIPS 1.13 m/s MV Mean Grad 2.4 (<2mmHg) MV VTI 0.389 m Pulm Vein s 0.57 m/s Pulm Vein d 0.85 m/s Pulm Vein a 0.40 m/s Pulmonary Valve PV Vmax 1.04 (0.5-1.5 m/s) RVOT Vmax 0.75 m/s PV Peak Grad 4.4 mmHg RVOT Peak Gr. 2.3 mmHg PV Mean Gianni 0.76 m/s RVOT VTI 0.176 m PV Mean Grad 2.5 mmHg RVOT Mean Gr. 1.3 mmHg Tricuspid Valve RA Pressure 3.00 mmHg TR Vmax 3.26 m/s TV S' 0.20 m/s TR Peak Grad 42.5 mmHg RVSP (TR) 45.5 mmHg
== END 2024-12-14 00:50 ==
LOC: DI 00:31
PROVIDERS: PCP Family Medicine; Visit Provider Internal Medicine Cardiovascular Disease
DX: I51.7 Cardiomegaly (principal); R01.1 Cardiac murmur, unspecified
CPT/HCPCS: 93306

== ENCOUNTER 2025-05-23 15:41 | Outpatient (REF) | payer MEDICARE, SELFPAY ==
[2025-05-23 14:55] LABS: HCT 33.4 % (40.0-50.0); HGB 10.8 g/dL (13.5-17.5); MCH 30.0 pg (27.0-33.0); MCHC 32.3 % (32.0-36.0); MCV 93 fL (80-95); MPV 10.2 fL (8.0-11.0); Platelet Count 256 10^3/uL (130-400); RBC 3.60 10^6/uL (4.36-5.78); RDW 12.9 % (11.8-14.1); RDW-SD 43.5 fL; WBC 6.17 10^3/uL (4.4-10.8)
[2025-05-23 15:24] LABS: ALT 33 U/L (16-63); AST 21 U/L (15-37); Albumin 3.9 g/dL (3.4-5.0); Alkaline Phosphatase 78 U/L (46-116); Anion Gap 8.6 mmol/L (3-11); BUN 43 mg/dL (7-18); Bilirubin, Total 0.2 mg/dL (0.2-1.0); CO2 28.4 mmol/L (21.0-32.0); Calcium 9.5 mg/dL (8.5-10.1); Chloride 107 mmol/L (98-107); Estimated GFR 41.19 (mL/min/1.73m2); Glucose 105 mg/dL (74-106); Potassium 5.0 mmol/L (3.5-5.1); Sodium 144 mmol/L (136-145); TSH 2.86 uIU/mL (0.36-3.74); Total Protein 7.3 g/dL (6.4-8.2)
== END 2025-05-23 15:42 | disposition home or self-care (01) ==
LOC: NCHCN 15:41
PROVIDERS: PCP Family Medicine; Visit Provider Internal Medicine
DX: R63.4 Abnormal weight loss (principal); N18.31 Chronic kidney disease, stage 3a
CPT/HCPCS: 80053; 85027; 84443

== ENCOUNTER 2025-06-15 16:35 | Outpatient (REF) | payer MEDICARE, SELFPAY ==
[2025-06-15 22:07] LABS: HCT 33.8 % (40.0-50.0); HGB 11.0 g/dL (13.5-17.5); MCH 30.6 pg (27.0-33.0); MCHC 32.5 % (32.0-36.0); MCV 94 fL (80-95); MPV 10.8 fL (8.0-11.0); Platelet Count 258 10^3/uL (130-400); RBC 3.60 10^6/uL (4.36-5.78); RDW 13.0 % (11.8-14.1); RDW-SD 44.5 fL; WBC 6.12 10^3/uL (4.4-10.8)
[2025-06-15 22:53] LABS: Iron 63 ug/dL (65-175); Total Iron Binding Capacity 354 ug/dL (250-450); Transferrin Sat 18 % (20-55)
[2025-06-15 23:04] LABS: Ferritin 82 ng/mL (26-388); Folate 15.9 ng/mL (8.6-20.0); Vitamin B12 595 pg/mL (193-986)
== END 2025-06-15 16:36 | disposition home or self-care (01) ==
LOC: NCHCN 16:35
PROVIDERS: PCP Family Medicine; Visit Provider Internal Medicine
DX: D64.9 Anemia, unspecified (principal)
CPT/HCPCS: 85027; 82607; 82728; 82746; 83540; 83550